=== PATIENT | female | born 2000 | race Caucasian/White ===

== ENCOUNTER 2023-11-01 08:25 | Emergency (ER) | payer OTHER ==
[2023-11-01 08:31] VITALS: BP 119/62; PULSE 83; RESP 20; TEMP 98.2; BMI 21.6
[2023-11-01] MEDS ORDERED: diphenhydrAMINE HCL 25 MG CAPSULE (FP) PO ONE (08:59)
[2023-11-01] MEDS ORDERED: FAMOTIDINE 20 MG TABLET ONE (09:00)
[2023-11-01] MEDS ORDERED: DEXAMETHASONE SOD PHOSPHATE 10 MG/1 ML VIAL ONE (09:00)
[2023-11-01] MEDS: DEXAMETHASONE SOD PHOSPHATE 10 MG/1 ML VIAL IM ONE (09:03)
[2023-11-01] MEDS: diphenhydrAMINE HCL 25 MG CAPSULE (FP) PO ONE (09:03)
[2023-11-01] MEDS: FAMOTIDINE 20 MG TABLET PO ONE (09:03)
== END 2023-11-01 11:31 | disposition home or self-care (01) ==
LOC: JERFT 08:25
PROC: 3E023GC Introduction of Other Therapeutic Substance into Muscle, Percutaneous Approach (ICD-10-PCS; principal; 2023-11-01)
DX: R21 Rash and other nonspecific skin eruption (principal); L50.9 Urticaria, unspecified
CPT/HCPCS: 99284-25; J1100

== ENCOUNTER 2024-03-04 16:00 | Emergency (ER) | payer OTHER ==
[2024-03-04 16:07] VITALS: BP 106/71; PULSE 103; RESP 18; TEMP 98.6; BMI 27.8
[2024-03-04] MEDS ORDERED: diphenhydrAMINE HCL 25 MG CAPSULE (FP) PO ONE (16:28)
[2024-03-04] MEDS ORDERED: FAMOTIDINE 20 MG TABLET ONE (16:28)
[2024-03-04] MEDS: FAMOTIDINE 20 MG TABLET PO ONE (16:35)
[2024-03-04] MEDS: diphenhydrAMINE HCL 25 MG CAPSULE (FP) PO ONE (16:35)
== END 2024-03-04 17:48 | disposition home or self-care (01) ==
LOC: JER 16:00 → JERFT 16:00
DX: R09.81 Nasal congestion (principal); M79.10 Myalgia, unspecified site; U07.1 COVID-19; L29.9 Pruritus, unspecified; R21 Rash and other nonspecific skin eruption
CPT/HCPCS: 99283-25

== ENCOUNTER 2024-03-06 17:54 | Emergency (ER) | payer OTHER ==
[2024-03-06 18:19] VITALS: BP 104/69; PULSE 89; RESP 16; TEMP 98.8; BMI 25.3
[2024-03-06 22:15] LABS: HIV INTERPRETATION NEGATIVE (NEGATIVE)
== END 2024-03-06 20:35 | disposition home or self-care (01) ==
LOC: JER 17:54 → JERFT 17:54
PROC: 3E023GC Introduction of Other Therapeutic Substance into Muscle, Percutaneous Approach (ICD-10-PCS; principal; 2024-03-06)
DX: L50.0 Allergic urticaria (principal); T78.1XXA Other adverse food reactions, not elsewhere classified, initial encounter
CPT/HCPCS: 36415; 86803; 87389; 99284-25

== ENCOUNTER 2024-10-03 19:02 | Emergency (ER) | payer OTHER ==
[2024-10-03 19:10] VITALS: BP 142/62; PULSE 100; RESP 18; TEMP 98.7; BMI 27.8
[2024-10-03] MEDS ORDERED: ACETAMINOPHEN 325 MG TABLET (FP) ONE (20:19)
[2024-10-03] MEDS ORDERED: IBUPROFEN 400 MG TABLET (FP) PO ONE (20:19)
[2024-10-03] MEDS: IBUPROFEN 400 MG TABLET (FP) PO ONE (20:22)
[2024-10-03] MEDS: ACETAMINOPHEN 325 MG TABLET (FP) PO ONE (20:23)
[2024-10-03 22:59] LABS: HCV DIAGNOSTIC IN-HOUSE W/RFLX NON-REACTIVE (NONREACTIVE); HIV INTERPRETATION NEGATIVE (NEGATIVE)
== END 2024-10-03 21:43 | disposition home or self-care (01) ==
LOC: JERFT 19:02
DX: M25.511 Pain in right shoulder (principal)
CPT/HCPCS: 36415; 73010-TC-FY; 73030-TC-RT-FY; 73060-TC-RT-FY; 86803; 87389; 99284-25